=== PATIENT | female | born 1985 | race Caucasian/White ===

== ENCOUNTER 2023-10-07 00:20 | Emergency (ER) | payer OTHER ==
[~2023-10-07] VITALS: Ht 165.1 cm; Wt 87.0 kg
[2023-10-07 00:36] VITALS: BP 132/74; PULSE 88; RESP 16; TEMP 98.2; O2SAT 98
== END 2023-10-07 02:10 | disposition home or self-care (01) ==
LOC: ER 00:20
DX: F10.129 Alcohol abuse with intoxication, unspecified (principal); F19.90 Other psychoactive substance use, unspecified, uncomplicated; Y90.7 Blood alcohol level of 200-239 mg/100 ml
CPT/HCPCS: 36415; 80320; 99283; G0480